=== PATIENT | female | born 1975 | race Caucasian/White ===

== ENCOUNTER 2020-06-11 07:55 | Outpatient (RCR) | payer OTHER, SELFPAY ==
--- NOTE | 2020-06-11 12:16 | HP.OTEVAL_ITS ---
Patient's Visit Information EDEN FREEMAN is a 44 year old F, referred to Occupational Therapy by LALY REZA, with a diagnosis of LE lymphedema/ lipodema. Date of Evaluation: 06/11/20 Occupational Therapist: Tamiko Eisenberg, HIENR/L, CHT - Subjective This 44 year old female was seen for OT eval with dx of lymphedema/lipedema pt states she thinks had issues with swelling starting late teens. Pt states with her 4th child leg continues to swell and is painful. Pt states nothing decreases pain or leg size. Pt states she has been wearing thigh high compression garments for but it increases pain and she can only kaur. for a few hours. PT states she feels best in leggings or tight. Limb size does not reduce while sleeping. pt would like to find options to assist with mtg. her LE - Pain BLE 6 - Lymphedema (Circumferential Measure) Mid-foot: right 22.5cm left 23cm Ankle: right 24cm left 25cm Lower calf: right 33 left 42.5 Largest calf: right 47cm left 53cm Below knee: right 38cm left 45cm Above knee: right 51cm left 63cm Mid-thigh: right 55cm left 61cm Lower Exremity Comments: pt sink is supple and soft-. no firm fiibrotic tissue noted. no edema in foot or toes. Question more lipedema - Lower Limb Functional Index Lower Extremity Functional Score: 44 - Goals Demonstrate a 20% reduction in edema by d/c: Yes Demonstrate adequate knowledge of self-bangaging by 1st week: Yes Demonstrate adequate knowledge of self-massage by 2nd week: Yes Demonstrate adequate knowledge skin care/prec by 2nd week: Yes Demonstrate adequate knowledge therapeutic exercises by d/c: Yes Select approp compression garment w/donning/care/wear by d/c: Yes Voice need to replace compression garment every 4-6mo by dc: Yes - Rehabilitation General Assessment: Pt demo with symptoms consistant with lipodema/ lymphedema- pt would benefit from skilled OT services to ed. pt on compression garments and compression alternatives. ed. on manual lymph ex, and lymph stim ex. Rehabilitation Potential: Questionable - Anticipated Interventions Education re Diagnosis, Manual Lymph Drainage, Education re Life-long lymphedema Management, Education re Self-Bandaging Techniques, Education re Skin Care and Precautions, Education re Self Massage Techniques, Education re Correct Donning Tech,Care&Wearing Sched Comp Garments, Caregiver Training, Home Program - Visit Plan TEXT: Thank you for the opportunity to evaluate your patient. For Medicare and Medicare HMO plans, please review the plan of care and approve it. It will need to be FAXED BACK to us at [phone] for Medicare purposes. Please let me know if there are questions or concerns regarding this plan of care. Physician Signature: Date:
--- NOTE | 2020-10-08 12:45 | HP.OTDCSUM ---
It has been my pleasure to treat EDEN FREEMAN under orders from LALY REZA, for the diagnosis of LE lymphedema/ lipodema for a total of 1 visit(s). Please see the following information for a summary of their discharge status. Patient Goals: Learn how to Manage Lymphedema, Learn how to Apply Compression Stockings Demonstrate a 20% reduction in edema by d/c: Yes Demonstrate adequate knowledge of self-bangaging by 1st week: Yes Demonstrate adequate knowledge of self-massage by 2nd week: Yes Demonstrate adequate knowledge skin care/prec by 2nd week: Yes Demonstrate adequate knowledge therapeutic exercises by d/c: Yes Select approp compression garment w/donning/care/wear by d/c: Yes Voice need to replace compression garment every 4-6mo by dc: Yes If there are questions or concerns regarding this patient's occupational therapy, please fell free to call me at [phone]. Thank you for the referral of this patient. Sincerely, Tamiko Eisenberg, OTR/L, CHT
== END 2020-06-11 19:00 | disposition home or self-care (01) ==
LOC: OT 07:55
DX: I89.0 Lymphedema, not elsewhere classified (principal); R60.9 Edema, unspecified
CPT/HCPCS: 97110; 97166